=== PATIENT | female | born 1995 | race African-American/Black ===

== ENCOUNTER → 2016-12-31 17:36 | Outpatient (CLI) | payer MEDICAID ==
[2017-01-01 00:11] LABS: HEMOGLOBIN A1C 6.6 % (4.8-6.0)
[2017-01-01 01:02] LABS: ERYTHROCYTE SEDIMENTATION RATE 27 mm/hr (0-20)
== END | disposition home or self-care (01) ==
LOC: D.LABREF 17:36
PROVIDERS: Student in an Organized Health Care Education/Training Program
DX: R53.83 Other fatigue (principal); R79.9 Abnormal finding of blood chemistry, unspecified